=== PATIENT | female | born 1970 | race African-American/Black ===

== ENCOUNTER 2021-08-25 15:38 | Emergency (ER) | payer SELFPAY ==
[~2021-08-25] VITALS: Ht 162.6 cm; Wt 73.0 kg
[2021-08-25 15:42] VITALS: BP 130/81
== END 2021-08-25 16:55 | disposition left against medical advice (07) ==
LOC: ER 15:38
DX: F10.129 Alcohol abuse with intoxication, unspecified (principal); Y90.9 Presence of alcohol in blood, level not specified
CPT/HCPCS: 80305; 99283